=== PATIENT | female | born 1985 | race Caucasian/White ===

== ENCOUNTER 2016-10-30 10:25 | Outpatient (CLI) | payer OTHER ==
[~2016-10-30] VITALS: Ht 160 cm; Wt 121.3 kg
[2016-10-30 11:07] VITALS: BP 129/85; PULSE 83; Ht 160 cm; Wt 121.3 kg
[2016-10-30] MEDS ORDERED: PRENAT PO (11:10)
--- NOTE | 2016-10-30 12:35 | RADRPT ---
PROCEDURE: US OB. CLINICAL INDICATION: Low MED TECHNIQUE: Transabdominal views of the pelvis are available for review. COMPARISON: None. FINDINGS: There is a single intrauterine gestation in a vertex position. The heart rate is present at 133 bpm. The placenta is posterior and fundal in location. There is no evidence of placenta previa or a plac ental abruption. The MED measures 15.3 cm. RPTAT: AA IMPRESSION: Normal MED. Marcello Bowser Physician Date Time Electronically viewed and signed by Marcello Bowser Physician on 10/30/2016 12:34 /
--- NOTE | 2016-10-30 13:40 | CONS ---
Date/Time of Note Date/Time of Note DATE: 10/30/16 TIME: 13:37 Assessment/Plan Assessment/Plan Additional Assessment/Plan 30 y/o at 37w 6d with GDMA1, NST reactive and MED normal. -discharge home -f/u with OB -continue biweekly NST/MED Consultation Date/Type/Reason Admit Date/Time Reason for Consultation NST for GDMA1 Hx of Present Illness 30 y/o at 37w 6d who presents for NST/MED for GDMA1. Denies LOF, VB, UCs, dysuria. +FM. Getting PNC, no complications. h/o x1. Per HPI. Other systems negative. Past Medical History Medical History: no pertinent history Past Surgical History Past Surgical Hx: no surgical history Social History Denies habits. Smoking Status: Never smoker Exam/Review of Systems Vital Signs Vitals Vital Signs Date Time Temp Pulse Resp B/P Pulse Ox O2 Delivery O2 Flow Rate FiO2 10/30/16 11:07 98.2 83 129/85 Exam Gen: NAD HEENT: NCAT CV: RRR Pulm: CTAB Abd: gravid, NT Back: no CVAT Ext: NT FHT: reactive [place]: no UCs MED: 15.3 cm Results Results 24 hrs Laboratory Tests Test 10/30/16 11:11 Bedside Glucose 95 SATISH MORLEY October 30, 2016 13:40
== END 2016-10-30 13:37 | disposition home or self-care (01) ==
LOC: L-D 10:25 → OBT 10:25
PROVIDERS: ATTEND Obstetrics & Gynecology
DX: O24.410 Gestational diabetes mellitus in pregnancy, diet controlled (principal); Z3A.37 37 weeks gestation of pregnancy
CPT/HCPCS: 76815; 82962; Z7500; G0463

== ENCOUNTER 2016-11-06 05:50 | Inpatient (IN) | payer OTHER ==
[~2016-11-06] VITALS: Ht 160 cm; Wt 121.3 kg
[~2016-11-06 05:50] MED LIST: PRENAT PO
[2016-11-06 05:55] VITALS: Ht 160 cm; Wt 121.3 kg
[2016-11-06] MEDS ORDERED: METHYLERGONOVINE 0.2 MG INJ IM PRN ×2 (06:00→08:00)
[2016-11-06] MEDS ORDERED: MISOPROSTOL 200 MCG TAB PR PRN ×2 (06:00→08:00)
[2016-11-06] MEDS ORDERED: OXYTOCIN 30 UNITS/LR 500 ML IV SCH (06:00)
[2016-11-06] MEDS ORDERED: CEFAZOLIN 2 GM/50 ML (PMX) 50 ML IV SCH (06:00)
[2016-11-06] MEDS ORDERED: OXYTOCIN 30 UNITS/LR 500 ML IV PRN ×2 (06:00→08:00)
[2016-11-06] MEDS ORDERED: CARBOPROST 250 MCG INJ IM PRN ×2 (06:00→08:00)
[2016-11-06] MEDS: LACTATED RINGER'S 1,000 ML IV SCH ×5 (06:22→23:30)
[2016-11-06 06:33] LABS: ADD SCAN DIFF NO
[2016-11-06 06:42] LABS: ABNORMAL IP MESSAGE 1; BASOPHILS % 0.3 % (0.0-2.0); EOSINOPHILS # 0.1 10^3/ul (0.0-0.5); EOSINOPHILS % 0.6 % (0.0-7.0); HEMATOCRIT 42.4 % (37.0-47.0); LYMPHOCYTES % 23.4 % (15.0-51.0); MEAN CORPUSCULAR HEMOGLOBIN 27.6 pg (29.0-33.0); MEAN CORPUSCULAR VOLUME 83.6 fl (82.0-101.0); MEAN PLATELET VOLUME 13.3 fl (7.4-10.4); MONOCYTE # 0.9 10^3/ul (0.3-0.9); MONOCYTES % 6.9 % (0.0-11.0); NEUTROPHIL # 8.6 10^3/ul (1.6-7.5); NEUTROPHILS % 68.3 % (39.0-77.0); PLATELET COUNT 218 10^3/UL (140-415); RED BLOOD COUNT 5.07 10^6/ul (4.20-5.40); RED CELL DISTRIBUTION WIDTH 13.7 % (11.5-14.5); WHITE BLOOD COUNT 12.6 10^3/ul (4.8-10.8)
[2016-11-06 06:50] VITALS: BP 140/84; PULSE 111; RESP 18
[2016-11-06 06:59] LABS: INR 0.84; PROTIME 11.5 Sec (12.2-14.2); PT RATIO 0.9
[2016-11-06 07:00] LABS: PARTIAL THROMBOPLASTIN TIME 24.2 Sec (25.0-35.0)
[2016-11-06] MEDS ORDERED: CEFAZOLIN 1 GM INJ ONE (07:00)
[2016-11-06] MEDS ORDERED: LACTATED RINGER'S 1,000 ML IV PRN (07:15)
[2016-11-06] MEDS ORDERED: PHENYLephrine (100 MCG/ML) 5ML SYG ONE ×2 (07:52→08:44)
[2016-11-06] MEDS ORDERED: morphine SULFATE/PF (10 MG/10 ML) INJ ONE (07:52)
[2016-11-06] MEDS ORDERED: ONDANSETRON 4 MG INJ ONE (07:52)
[2016-11-06] MEDS ORDERED: OXYTOCIN 10 UNIT INJ ONE (07:52)
[2016-11-06] MEDS ORDERED: OXYCODONE/ACETAMINOPHEN (5/325) TAB PO PRN (08:00)
[2016-11-06] MEDS ORDERED: METHYLERGONOVINE 0.2 MG TAB PO PRN (08:00)
[2016-11-06] MEDS ORDERED: NA PHOSPHATE/BIPHOS 133 ML ENEMA PR PRN (08:00)
[2016-11-06] MEDS ORDERED: LANOLIN 7 GM TUBE TOP PRN (08:00)
[2016-11-06] MEDS ORDERED: ONDANSETRON 4 MG INJ IV PRN ×2 (08:00→12:30)
--- NOTE | 2016-11-06 08:04 | HPN ---
Date/Time of Note Date/Time of Note DATE: 11/06/16 TIME: 08:03 Interval H&P Admission Note Pt. seen H&P reviewed: No system changes JUAN WARD MD November 06, 2016 08:04
--- NOTE | 2016-11-06 08:38 | PREOPHP ---
DATE OF ADMISSION: 11/06/2016 HISTORY OF PRESENT ILLNESS: This is a 30-year-old female, 5, para 1, abortions 2, with 1 li ving child. She had a due date estimate of 11/14/2016. The patient had seen on labetalol during th e due to hypertension of . She is morbidly obese and she had gained only 20 poun ds during this . She has been checked with NSTs and BPPs due to her hypertension and she aquino d no complications. She became gestational diabetic. Everything else had been normal. Borderline diabetic. Only 1 value all the 3-hour was abnormal. The patient otherwise is stable and she is und ergoing a repeat section. She had a first baby in 2005, with premature delivery at 5 month s. The baby did not make it. Then she had a spontaneous vaginal delivery in 2008, then a 14-week p regnancy lost. Then she had a , at which time she delivered at 24 weeks, with albino th. At this time she is with a second partner and she is admitted for a repeat sec tion. FAMILY HISTORY: Her care mother had ovarian cancer. ALLERGIES: SHE IS NOT ALLERGIC TO ANY MEDICATION. SOCIAL HISTORY: She does not drink or smoke and no history of drug addiction. PERSONAL HISTORY: Only for 1 and second trimester loss 2 times. The patient was followed by perinatology since early and there was no need for a cerclage. She was place d on labetalol 50 mg b.i.d. due to borderline hypertension. She had an uncomplicated othe rwise. PHYSICAL EXAMINATION: VITAL SIGNS: The blood pressure is 130/80. The patient weighs 262 pounds. She is 5 feet 3 and her blood pressure is 130/80. HEAD AND NECK: Normal. CHEST: Clear. HEART: Normal sinus rhythm. LUNGS: Clear. BREASTS: Soft, nontender. No masses. ABDOMEN: Soft. Uterus at term. The patient has no contractions. PELVIC EXAMINATION: With a cephalic presentation, nonengaged closed cervix, long, posterior. Membr anes intact, non-effaced. EXTREMITIES: Normal, with normal pulses and normal reflexes. DIAGNOSES: 1. Term . 2. Borderline diabetes. 3. Hypertension of . 4. Previous section. PLAN: She is undergoing a repeat section. She has been advised of the possible risks and possible complications of the procedure, with her alternatives and options. Written information was provided. She had no more questions and agreed to go ahead with the procedure, with full understan ding and no more questions. Dictated By: JUAN HINDS/NTS Conf#: [id number] DID#: [id number]
[2016-11-06] MEDS ORDERED: METOCLOPRAMIDE 10 MG INJ ONE (08:50)
[2016-11-06] MEDS: SENNA/DOCUSATE NA (8.6MG/50MG) TAB PO SCH ×2 (09:00→21:05)
[2016-11-06] MEDS: LABETALOL 100 MG TAB GTB SCH ×2 (09:00→21:00)
[2016-11-06 09:03] LABS: ALBUMIN 3.5 g/dl (3.3-4.9)
[2016-11-06 09:04] LABS: POTASSIUM 4.2 mmol/L (3.5-5.1)
[2016-11-06 09:06] LABS: ALBUMIN/GLOBULIN RATIO 0.83; BILIRUBIN,INDIRECT 0.1 mg/dl (0-1.1); BILIRUBIN,TOTAL 0.1 mg/dl (0.2-1.3); CREATININE 0.65 mg/dl (0.44-1.00); TOTAL PROTEIN 7.7 g/dl (6.1-8.1)
[2016-11-06 09:07] LABS: CALCIUM 9.3 mg/dl (8.4-10.2); URIC ACID 5.3 mg/dl (3.1-7.9)
--- NOTE | 2016-11-06 09:36 | OPR ---
Date/Time of Note Date/Time of Note DATE: 11/06/16 TIME: 09:30 Operative Report Procedure Date: November 06, 2016 Preoperative Diagnosis term morbid obesity hypertension diabetes previous c/s Postoperative Diagnosis same baby girl 9 Operation Performed repeat low segment transverse c/s Surgeon: JUAN WARD MD Prn Physical Therapist: MICHAEL ARMSTRONG MD Anesthesia: spinal Anesthesiologist: WILBERT SHANNON MD Estimated Blood Loss: 250 - 300 ml's Tubes/Drains Bard Complications: None Pt Condition Post Procedure: stable Disposition: PACU JUAN WARD MD November 06, 2016 09:36
--- NOTE | 2016-11-06 09:40 | OPR ---
DATE OF OPERATION: 11/06/2016 OPERATION: Repeat low segment transverse section. PREOPERATIVE DIAGNOSES: 1. Term . 2. Previous section. 3. Morbid obesity. 4. hypertension. 5. Gestational hypertension. 6. Borderline diabetes. POSTOPERATIVE DIAGNOSES: 1. Term . 2. Previous section. 3. Morbid obesity. 4. hypertension. 5. Gestational hypertension. 6. Borderline diabetes. 7. Baby girl, 9. SURGEON: Juan Woodson MD CYBER DEFENSE INCIDENT RESPONDER: Michael Aj MD ANESTHESIOLOGIST: Vishal Leblanc MD ANESTHESIA: Spinal. PROCEDURE: The patient was given a spinal anesthesia, placed in the supine position and the abdomen was prepped and draped. The Barone catheter was placed in the bladder. A transverse incision was m nina through the previous old scar transversely 2 cm up the pubic bone of about 10 cm in length. The abdominal cavity was reached and the Simone retractor was placed and 2 laps were used on the sides to retract the bowel. There was adhesions of the omentum that were lysed. The bladder flap was mad e. The uterus was opened in the midline with a scalpel and the incision was increased laterally on either side for about 3 inches. The baby's head was delivered. Suction of the nostril were done be fore the delivery of the body. The baby was delivered followed by cutting the cord and the baby was handed over to the information technology coordinator team. The cord blood was obtained. The placenta was removed. Th e uterus was swabbed out and the cervix was opened with a ring forceps. The incision was closed in 2 layers using #1 Monocryl continuous suture imbedding the first line of suture and hemostasis was g ood. The tubes and ovaries were normal. The uterus contracted down and a piece of Interceed was pl aced on the incision for prevention of adhesions. The peritoneum was closed with a 2-0 Vicryl. The fascia was closed with 0 PDS looped suture. A Bard drain was used to the subcutaneous tissue due t o the thickness of the fat tissue on this area. The drain was brought out 5 cm up the incision on t he right side using a knife. The subcutaneous tissue was closed with 2-0 Vicryl suture and 3-0 Hart cryl were used subcuticular to the skin, Steri-Strips and also Dermabond. The patient tolerated the procedure well and left the OR awake and stable. Sponge counts, instrument counts were correct. I ntravenous antibiotics were given for prophylaxis. Blood loss was approximately 300 mL. The urine was clear at the end of the procedure. Dictated By: JUAN HINDS/NTS Conf#: [id number] DID#: [id number] CC: MICHAEL AJ MD;*EndCC*
[2016-11-06] MEDS: OXYTOCIN 30 UNITS/LR 500 ML IV SCH ×2 (09:58→12:14)
[2016-11-06 12:30] VITALS: BP 121/76; PULSE 88; RESP 18
[2016-11-06] MEDS ORDERED: NALOXONE (0.4 MG/ML) INJ IV PRN (12:30)
[2016-11-06] MEDS ORDERED: morphine 2 MG INJ IV PRN (12:30)
[2016-11-06] MEDS ORDERED: DIPHENHYDRAMINE 50 MG INJ IV PRN (12:30)
[2016-11-06] MEDS: KETOROLAC 30 MG INJ IV PRN ×2 (12:47→22:14)
[2016-11-06] MEDS ORDERED: IBUPROFEN 800 MG TAB PO SCH (14:00)
[2016-11-06] MEDS: CEFAZOLIN 1 GM/50 ML (PMX) 50 ML IVPB SCH ×2 (14:12→21:45)
[2016-11-06 16:00] VITALS: BP 129/81; PULSE 87; RESP 20
[2016-11-06 19:45] VITALS: BP 126/80; PULSE 90; RESP 20
[2016-11-06 23:30] VITALS: BP 120/75; PULSE 80; RESP 19
[2016-11-07 04:00] VITALS: BP 115/77; PULSE 87; RESP 18
[2016-11-07] MEDS: LACTATED RINGER'S 1,000 ML IV SCH ×3 (05:35→23:52)
[2016-11-07] MEDS: CEFAZOLIN 1 GM/50 ML (PMX) 50 ML IVPB SCH (05:35)
[2016-11-07] MEDS: KETOROLAC 30 MG INJ IV PRN (05:40)
[2016-11-07 07:30] VITALS: BP 107/70; PULSE 77; RESP 19
[2016-11-07 08:10] LABS: ADD SCAN DIFF NO
[2016-11-07 08:17] LABS: ABNORMAL IP MESSAGE 1; BASOPHILS % 0.3 % (0.0-2.0); EOSINOPHILS # 0.1 10^3/ul (0.0-0.5); EOSINOPHILS % 0.8 % (0.0-7.0); HEMOGLOBIN 11.6 g/dl (12.0-16.0); LYMPHOCYTES % 18.8 % (15.0-51.0); MEAN CORPUSCULAR HGB CONC 33.1 g/dl (32.0-37.0); MEAN CORPUSCULAR VOLUME 84.3 fl (82.0-101.0); MEAN PLATELET VOLUME 13.3 fl (7.4-10.4); MONOCYTE # 0.9 10^3/ul (0.3-0.9); MONOCYTES % 8.5 % (0.0-11.0); NEUTROPHIL # 7.5 10^3/ul (1.6-7.5); NEUTROPHILS % 71.1 % (39.0-77.0); PLATELET COUNT 188 10^3/UL (140-415); RED BLOOD COUNT 4.15 10^6/ul (4.20-5.40); RED CELL DISTRIBUTION WIDTH 13.7 % (11.5-14.5); WHITE BLOOD COUNT 10.5 10^3/ul (4.8-10.8)
[2016-11-07 08:35] LABS: ALBUMIN 2.6 g/dl (3.3-4.9)
[2016-11-07 08:36] LABS: POTASSIUM 3.7 mmol/L (3.5-5.1)
[2016-11-07 08:38] LABS: ALBUMIN/GLOBULIN RATIO 0.81; BILIRUBIN,INDIRECT 0.1 mg/dl (0-1.1); BILIRUBIN,TOTAL 0.1 mg/dl (0.2-1.3); CREATININE 0.65 mg/dl (0.44-1.00); TOTAL PROTEIN 5.8 g/dl (6.1-8.1)
[2016-11-07 08:39] LABS: CALCIUM 8.5 mg/dl (8.4-10.2); URIC ACID 5.2 mg/dl (3.1-7.9)
[2016-11-07] MEDS: LABETALOL 100 MG TAB GTB SCH ×2 (09:00→21:02)
[2016-11-07] MEDS: OXYCODONE/ACETAMINOPHEN (5/325) TAB PO PRN ×3 (10:42→23:46)
[2016-11-07] MEDS: SENNA/DOCUSATE NA (8.6MG/50MG) TAB PO SCH ×2 (10:42→21:01)
[2016-11-07 11:16] LABS: INR 0.93; PROTIME 12.5 Sec (12.2-14.2)
[2016-11-07 12:00] VITALS: BP 121/86; PULSE 86; RESP 19
--- NOTE | 2016-11-07 12:27 | PN ---
Date/Time of Note Date/Time of Note DATE: 11/07/16 TIME: 12:25 OB Subjective Subjective Subjective POD # 1 S/P repeat Patient has no complaints OB Objective Objective Objective Patient is voiding, positive flatus Patient is ambulating and tolerating regular diet HEENT: WNL Heart: Rhythm Normal Lungs: Clear, Equal Abdomen: WNL (Incision C/D/I) Extremities: Normal Reflexes: Normal OB Assessment/Plan Other Assessment: POD # 1 S/P repeat Patient stable and afebrile Other plan: Encouraged to ambulate Continue with present management EMY PIKE MD November 07, 2016 12:27
[2016-11-07] MEDS: IBUPROFEN 800 MG TAB PO SCH ×2 (13:41→22:00)
[2016-11-07 16:00] VITALS: BP 125/77; PULSE 91; RESP 19
[2016-11-07 19:30] VITALS: BP 136/90; PULSE 78; RESP 18
[2016-11-08 04:00] VITALS: BP 123/74; PULSE 88; RESP 18
[2016-11-08] MEDS: IBUPROFEN 800 MG TAB PO SCH ×3 (05:32→22:07)
[2016-11-08] MEDS: LACTATED RINGER'S 1,000 ML IV SCH ×2 (07:52→15:52)
[2016-11-08 08:00] VITALS: BP 122/79; PULSE 93; RESP 19
[2016-11-08] MEDS: LABETALOL 100 MG TAB GTB SCH ×2 (10:29→20:47)
[2016-11-08] MEDS: OXYCODONE/ACETAMINOPHEN (5/325) TAB PO PRN (10:30)
[2016-11-08] MEDS: SENNA/DOCUSATE NA (8.6MG/50MG) TAB PO SCH ×2 (10:30→20:47)
[2016-11-08 12:00] VITALS: BP 140/94; PULSE 85; RESP 19
--- NOTE | 2016-11-08 12:36 | QN ---
Documentation Comment POD2 pt doing well vss exam wnl CDI a/p pod 2 continue care MICHAEL ARMSTRONG MD November 08, 2016 12:36
[2016-11-08 16:08] VITALS: BP 122/55; PULSE 64; RESP 19
[2016-11-08 19:40] VITALS: BP 135/89; PULSE 86; RESP 18
[2016-11-09] MEDS: OXYCODONE/ACETAMINOPHEN (5/325) TAB PO PRN ×2 (01:32→09:50)
[2016-11-09 03:45] VITALS: BP 112/79; PULSE 80; RESP 18
[2016-11-09] MEDS: IBUPROFEN 800 MG TAB PO SCH ×3 (05:52→22:01)
[2016-11-09] MEDS: LACTATED RINGER'S 1,000 ML IV SCH ×3 (07:52→23:52)
[2016-11-09 08:20] VITALS: BP 116/68; PULSE 98; RESP 19
[2016-11-09] MEDS ORDERED: DIPHTH/TET/ACEL PERTUSS (ADULT) 0.5 ML VIAL IM* ONE (09:00)
[2016-11-09] MEDS ORDERED: MEASLES,MUMPS,RUBELLA VACCINE INJ SC* ONE (09:00)
[2016-11-09] MEDS: SENNA/DOCUSATE NA (8.6MG/50MG) TAB PO SCH ×2 (09:50→20:45)
[2016-11-09] MEDS: LABETALOL 100 MG TAB GTB SCH ×2 (09:50→20:46)
[2016-11-09 15:08] VITALS: BP 123/85; PULSE 96; RESP 18
[2016-11-09 19:45] VITALS: BP 136/93; PULSE 93; RESP 18
--- NOTE | 2016-11-09 23:11 | PN ---
Date/Time of Note Date/Time of Note DATE: 11/09/16 TIME: 23:05 OB Subjective Subjective Subjective having headaches when standing up, relieved by lying down otherwise she is doing ok OB Objective Objective Objective incision healing well. JPratt DRAINING 300 CC TODAY HEENT: WNL Heart: Rhythm Normal Lungs: Clear, Equal Abdomen: WNL Extremities: Normal Reflexes: Normal JUAN WARD MD November 09, 2016 23:11
[2016-11-10] MEDS ORDERED: CAFFEINE 200 MG TABLET PO SCH
[2016-11-10 03:50] VITALS: BP 103/69; PULSE 90; RESP 20
[2016-11-10] MEDS: IBUPROFEN 800 MG TAB PO SCH ×3 (05:54→22:03)
[2016-11-10] MEDS: LACTATED RINGER'S 1,000 ML IV SCH (07:52)
[2016-11-10 08:00] VITALS: BP 133/86; PULSE 79; RESP 18
[2016-11-10] MEDS: SENNA/DOCUSATE NA (8.6MG/50MG) TAB PO SCH ×2 (09:29→21:03)
[2016-11-10] MEDS: LABETALOL 100 MG TAB GTB SCH ×2 (09:29→21:06)
[2016-11-10 12:00] VITALS: BP 140/82; PULSE 86; RESP 18
--- NOTE | 2016-11-10 13:56 | PN ---
Date/Time of Note Date/Time of Note DATE: 11/10/16 TIME: 13:52 Assessment/Plan Lines/Catheters IV Catheter Type (from Nrsg): Peripheral IV Subjective 24 Hr Interval Summary EPIDURAL BLOOD PATCH WAS GIVEN DUE TO HEADACHES THAT WERE ONLY POSTURAL HEADACHES DUE TO SPINAL ANESTHESIA Constitutional: BM, ambulates, flatus, improved, urine output Feeding: advancing diet Pain Control: well controlled Detailed Summary Eyes: no complaints ENT: no complaints Respiratory: no complaints Cardiovascular: no complaints Gastrointestinal: no complaints Genitourinary: no complaints Musculoskeletal: no complaints Skin: no complaints Neurologic: no complaints Endocrine: no complaints Lymphatic: no complaints Psychological: nl mood/affect, no complaints Immunologic: no complaints Exam/Review of Systems Vital Signs Vitals Vital Signs Date Time Temp Pulse Resp B/P Pulse Ox O2 Delivery O2 Flow Rate FiO2 11/10/16 03:50 98.1 90 20 103/69 Room Air Intake and Output 11/09/16 11/09/16 11/10/16 15:00 23:00 07:00 Output Total 30 ml 20 ml Balance -30 ml -20 ml Exam Free Text/Dictation HEADACHES WERE STRONG TODAY ANESHESIA WAS CALLED FOR A BLOOD PATCH Constitutional: alert, oriented, well developed Psych: nl mood/affect, no complaints Head: atraumatic, normocephalic Eyes: EOMI, nl conjunctiva, nl lids, nl sclera ENMT: mucosa pink and moist, nl external ears & nose, nl lips & teeth, nl nasal mucosa & septum Neck: non-tender, supple Respiratory: clear to auscultation, normal air movement Cardiovascular: nl pulses, regular rate and rhythm Gastrointestinal: nl liver, spleen, non-tender, soft Musculoskeletal: nl extremities to inspection, nl gait and stance Extremities: normal pulses Neurological: STUDENT DEVELOPMENT DEAN II-XII intact, nl mental status, nl speech, nl strength Skin: nl turgor, rash or lesions Lymph: nl lymph nodes Results Result Diagram: 11/07/1640 11/07/1640 JUAN WARD MD November 10, 2016 13:55
[2016-11-10 16:00] VITALS: BP 118/69; PULSE 86; RESP 19
[2016-11-10 19:45] VITALS: BP 127/84; PULSE 94; RESP 16
[2016-11-10 23:50] VITALS: BP 134/86; PULSE 86; RESP 18
[2016-11-11 04:00] VITALS: BP 109/69; PULSE 94; RESP 16
[2016-11-11] MEDS: IBUPROFEN 800 MG TAB PO SCH (06:13)
[2016-11-11 08:30] VITALS: BP 115/73; PULSE 87; RESP 22
[2016-11-11] MEDS: SENNA/DOCUSATE NA (8.6MG/50MG) TAB PO SCH (08:33)
[2016-11-11] MEDS: LABETALOL 100 MG TAB GTB SCH (08:36)
--- NOTE | 2016-11-11 11:52 | PD.PPDC ---
VALIDATION SPECIALIST Discharge Instruction Condition Patient Condition: Good Diet Diet: Resume Regular Diet Activity/Restrictions Activity: Normal Activity May Shower Restrictions: No Exercising No Lifting No Driving No Sexual Activity Nothing in the Vagina No [place] No Tampons, douche Wound/Drain Care Instructions Wound/Drain Care Instructions: Remove Steri Strips in 1 week Wash with soap and water Keep clean and dry Follow-up Follow-up with Physician: 1, Week/Weeks Return to clinic for HEARING INSTRUMENT SPECIALIST Instructions: Fever greater than 101 Chills Worsening abdominal pain Excessive Vaginal Bleeding More than 2 pads per hour Unable to tolerate diet OB Instructions: Breast Tenderness Depression Blurried Vision Headache Surgical Instructions: Incisional Drainage Incisional Redness JUAN WARD MD November 11, 2016 11:52
--- NOTE | 2016-11-11 14:24 | DS ---
DATE OF ADMISSION: 11/06/2016 DATE OF DISCHARGE: 11/11/2016 HISTORY: This is a 30-year-old female, 5, para 1, abortions 2 with 1 living child. This pa tient had been admitted for a repeat , and she had no complications. She was with borderli ne diabetes that was controlled with diet alone, hypertension of , and at term . A repeat section was done. She had no complications. After the second day of , s he had spinal headache that was treated with a blood patch, and she became better. The patient's bl ood pressure also has become normal without need for medication, and her diabetes also got controlle d. The patient had a drain on the incision that was removed on the day of discharge which is the , and she has no problems on the incision. She was ambulatory. She had resolved her headache, an d she was passing gases with bowel movement. Her laboratory testing revealed that the hemoglobin wa s 11.6, hematocrit was 35 with a normal white count at the time of discharge, and she was sent home with Tylenol No. 3 and ibuprofen and Keflex to prevent the incision infection since slight redness o n the incision was observed. The patient was given 500 mg of Keflex every 6 hours for a week and sh e is to see me in the office at any time or in a week. She is given further instructions of what to do and not to do at home and regular diet and further instructions of how to take care of herself a nd the baby. She is stable, in good condition and good spirits to go home, and she was given the in structions to see me if she had any problems. Dictated By: JUAN HINDS/DAGOBERTO Conf#: [id number] DID#: [id number]
== END 2016-11-11 14:15 | disposition home or self-care (01) | DRG 765 ==
LOC: L-D 05:50 → PP1 12:45
PROVIDERS: ADMIT Obstetrics & Gynecology; ATTEND Obstetrics & Gynecology
PROC: 10D00Z1 Extraction of Products of Conception, Low, Open Approach (ICD-10-PCS; principal; 2016-11-06 07:30)
PROC: 3E0R3GC Introduction of Other Therapeutic Substance into Spinal Canal, Percutaneous Approach (ICD-10-PCS; 2016-11-10)
DX: O34.211 Maternal care for low transverse scar from previous cesarean delivery (principal); Z68.42 Body mass index [BMI] 45.0-49.9, adult; O16.4 Unspecified maternal hypertension, complicating childbirth; Z37.0 Single live birth; O24.410 Gestational diabetes mellitus in pregnancy, diet controlled; O99.214 Obesity complicating childbirth; E66.01 Morbid (severe) obesity due to excess calories; Z3A.00 Weeks of gestation of pregnancy not specified; O89.4 Spinal and epidural anesthesia-induced headache during the puerperium
CPT/HCPCS: 80053; 82962; 84560; 85025; 85384; 85610; 85730; 86592; 86850; 86900; 86901; 87340; 90715; 99464; J0690; J1885; J2274; J2370; J2405; J2590; J2765; J7120

== ENCOUNTER 2018-05-31 17:59 | Outpatient (CLI) | END 2018-05-31 18:53 | disposition home or self-care (01) ==

== ENCOUNTER 2018-05-31 18:57 | Emergency (ER) | END 2018-05-31 20:40 | disposition home or self-care (01) ==

== ENCOUNTER 2018-06-11 00:56 | Outpatient (CLI) | END 2018-06-11 08:00 | disposition home or self-care (01) ==

== ENCOUNTER 2018-06-29 15:17 | Inpatient (IN) | payer OTHER ==
[~2018-06-29] VITALS: Ht 160 cm; Wt 131.3 kg
[2018-06-29 15:54] VITALS: Ht 160 cm; Wt 131.3 kg
[2018-06-29 15:55] VITALS: BP 125/78; PULSE 100; RESP 18
[2018-06-29] MEDS ORDERED: CEFAZOLIN 3 GM in DEXTROSE 5% 100 ML IV SCH (21:00)
[2018-06-29] MEDS ORDERED: MISOPROSTOL 200 MCG TAB PR PRN ×2 (21:00→23:00)
[2018-06-29] MEDS ORDERED: METHYLERGONOVINE 0.2 MG INJ IM PRN ×2 (21:00→23:00)
[2018-06-29] MEDS ORDERED: CARBOPROST 250 MCG INJ IM PRN ×2 (21:00→23:00)
[2018-06-29] MEDS ORDERED: OXYTOCIN 30 UNITS/LR 500 ML IV PRN (21:00)
[2018-06-29] MEDS: LACTATED RINGER'S 1,000 ML IV SCH ×2 (21:05→22:36)
--- NOTE | 2018-06-29 22:33 | PREOPHP ---
DATE OF ADMISSION: 06/29/2018 HISTORY OF PRESENT ILLNESS: The patient admitted today due to impending mild to severe preeclampsia and gestational diabetes, and previous section. This is a 32-year-old female, 6 wit h 3 previous deliveries, one was premature at 5 months in 2005, the other one was a vaginal delivery in 2008 and in between 2009 and 2010 she had a miscarriage and another second trimester , and a previous section in 2016. At present time, this baby is due on 07/16/2018 by cora murray. Her last period was 10/13/2017 with not an accurate date of last period and an ultrasound early trimester giving her an EDC of 07/16/2018. This patient had been accepted in the practice at 11 week s for care. She has morbid obesity and her weight is 265 at the time of . At this time, she gained 17 pounds. The patient had been diagnosed with gestational diabetes in 01/20. She had been following close visits to the perinatologist and she has been controlled on metformin. This patient lately had been having an elevated blood pressure in which last visit in May she was ev aluated for preeclampsia and the preeclampsia was mild. She has been controlling her blood sugar. N STs and BPP has been done weekly. Today, she had come in due to the NST and BPP controlled. She was diagnosed with a large fetus by the perinatologist possibly due to partially controlled diabetes. S he has been running blood pressures that have been up and down with blood pressure in the office, cindy stolic in the 100s and coming back to normal with headaches, dizziness, epigastric pain that are spor adic and they come and go and they are very strong. BPP and NST normal. At this time, the patient h as been kept for a repeat due to blood pressures that are fluctuating up and down, and with impending severe preeclampsia. PAST MEDICAL HISTORY: The patient had a previous section at 40 weeks during the last pregna ncy. FAMILY HISTORY: Ovarian cancer on her mother. ALLERGIES: SHE IS NOT ALLERGIC TO ANY MEDICATION. PAST SURGICLAL HISTORY: She has no other surgeries. SOCIAL HISTORY: She does not drink or smoke. No history of drugs. PHYSICAL EXAMINATION: VITAL SIGNS: The patient weighs 282 pounds and her blood pressure is 130/90. HEAD AND NECK: Normal. CHEST: Clear. HEART: Normal sinus rhythm. LUNGS: Clear. BREASTS: Soft, nontender, no masses. ABDOMEN: Soft. Uterus at term, 37 weeks, with no uterine contractions. PELVIC: With cervix that is closed, long and posterior. EXTREMITIES: Normal with normal pulses and no edema. DIAGNOSES: 1. 37 weeks . 2. Gestational diabetes A2 and preeclampsia. PLAN: She is undergoing a repeat section. She has been advised of the possible risks and p ossible complications of the procedure with her alternatives and options. Written information was pr ovided. She had no more questions and agreed to go ahead with the procedure with full understanding and no more questions. Dictated By: JUAN HINDS/DAGOBERTO Conf#: [id number] DID#: [id number]
[2018-06-29] MEDS ORDERED: OXYTOCIN 30 UNITS/LR 500 ML IV SCH (22:41)
[2018-06-29] MEDS ORDERED: LACTATED RINGER'S 1,000 ML IV SCH (22:41)
--- NOTE | 2018-06-29 22:55 | SIPON ---
Date/Time of Note Date/Time of Note DATE: 06/29/18 TIME: 22:53 Operative Report Preoperative Diagnosis 37 weeks in labor Previous section Maternal obesity Preeclampsia GDM A2 Postoperative Diagnosis Same Operation/Procedure Performed Repeat low segment transverse section Lysis of adhesions Surgeon see signature line culture media laboratory assistant DR PRYOR Anesthesia: spinal Estimated blood loss: other Transfusion Required none Specimen Placenta Grafts/Implants none Complications none JUAN WARD MD Jun 29, 2018 22:55
[2018-06-29] MEDS ORDERED: LANOLIN HPA 1 PKT TOP PRN (23:00)
[2018-06-29] MEDS ORDERED: METHYLERGONOVINE 0.2 MG TAB PO PRN (23:00)
[2018-06-29] MEDS ORDERED: HYDROCODONE/APAP (5/325) TAB PO PRN (23:00)
[2018-06-29] MEDS ORDERED: NA PHOSPHATE/BIPHOS 133 ML ENEMA PR PRN (23:00)
[2018-06-29] MEDS: CEFAZOLIN 2 GM/50 ML (PMX) 50 ML IVPB SCH (23:00)
--- NOTE | 2018-06-30 00:22 | PREAC ---
Date/Time of Note Date/Time of Note DATE: 06/30/18 TIME: 00:19 Anesthesia Eval and Record Evaluation Time Pre-Procedure Interview DATE: 06/30/18 TIME: 00:19 Age 32 Sex female NPO: 8 hrs Preoperative diagnosis IUP Planned procedure Repeat Csection Past Medical History Past Medical History: Includes Cardio: HTN, Dyslipidemia Endo: Diabetes GI: Morbid obesity Surgery & Anesthesia Issues No known issue Meds Anticoagulation: No Beta Glenn within 24 hr: No Reason Beta Glenn not given: Pt. not on B-Glenn Reported Medications Multivit/Min/Fol Ac/Iron/Pren* ( S*) 1 Tab Tab, 1 TAB PO DAILY, TAB 10/30/16 Current Medications Lactated Ringer's 1,000 ml @ 125 mls/hr Q8H IV ; Start 06/29/18 at 22:41; Stop 06/30/18 at 02:40 Cefazolin Sodium/ Dextrose 50 ml @ 100 mls/hr Q8H IVPB ; Start 06/29/18 at 23:00; Stop 06/30/18 at 15:29 Oxytocin/Lactated Ringer's 500 ml @ 50 mls/hr Q10H IV ; Start 06/29/18 at 22:41; Stop 06/30/18 at 08:40 Methylergonovine Maleate (Methergine) 0.2 mg Q6H PRN PO VAGINAL BLEEDING; Start 06/29/18 at 23:00 Acetaminophen/ Hydrocodone Bitart ([place] (5/325)) 1 tab Q4H PRN PO PAIN LEVEL 4-6; Start 06/29/18 at 23:00 Acetaminophen/ Hydrocodone Bitart ([place] (5/325)) 2 tab Q4H PRN PO PAIN LEVEL 7-10; Start 06/29/18 at 23:00 Ibuprofen (Motrin) 800 mg Q8 PO ; Start 07/01/18 at 14:00 Simethicone (Mylicon) 160 mg Q8H PRN PO DISTENSION/GAS/BLOATING; Start 06/29/18 at 23:00 Senna/Docusate Sodium (Senokot-S) 1 tab BID PO ; Start 06/30/18 at 09:00 Sodium Biphosphate/ Sodium Phosphate (Fleet Enema) 133 ml DAILY PRN MT CONSTIPATION; Start 06/29/18 at 23:00 Lanolin (Lanolin Hpa) 1 applic BEDSIDE MEDICATION PRN TOP BEDSIDE FOR GRAEME TO NIPPLES; Start 06/29/18 at 23:00 Diphtheria/ Tetanus/Acell Pertussis (Adacel) 0.5 ml ONCE ONCE IM* ; Start at 09:00; Stop 07/02/18 at 09:01 Measles/Mumps/ Rubella Vaccine Live (Mmr Ii Vaccine) 0.5 ml ONCE ONCE SC* ; Start 07/02/18 at 09:00; Stop 07/02/18 at 09:01 Enoxaparin Sodium (Lovenox) 40 mg DAILY SC ; Start 06/30/18 at 09:00 Oxytocin/Lactated Ringer's 500 ml @ 0 mls/hr ONCE PRN IV VAGINAL BLEEDING; Start 06/29/18 at 23:00 Methylergonovine Maleate (Methergine) 0.2 mg ONCE PRN IM VAGINAL BLEEDING; Start 06/29/18 at 23:00 Carboprost Tromethamine (Hemabate) 250 mcg ONCE PRN IM VAGINAL BLEEDING; Start 06/29/18 at 23:00 Misoprostol (Cytotec) 1,000 mcg ONCE PRN MT VAGINAL BLEEDING; Start 06/29/18 at 23:00 Ketorolac Tromethamine (Toradol) 30 mg Q6H IV ; Start 06/29/18 at 23:00; Stop 07/01/18 at 05:01 Meds reviewed: Yes Allergies Coded Allergies: No Known Allergy (Unverified , 06/29/18) Allergies Reviewed: Yes Labs/Studies Labs Reviewed: Reviewed by anesthesiologist Result Diagram: 06/29/18 1611 06/29/18 1611 Laboratory Tests 06/29/18 16:11 Blood Bank Test 06/29/18 20:00 Antibody Screen NEGATIVE Blood Type A POSITIVE Rh Immune Globulin Candidate NO test: Positive Studies: ECG Pre-procedure Exam Last vitals Vital Signs Date Temp Pulse Resp B/P (MAP) Pulse Ox O2 O2 Flow FiO2 Time Delivery Rate 06/29/18 98.2 100 18 125/78 Room Air 15:55 (94) Airway: Adequate mouth opening, Adequate thyromental dist Mallampati: Mallampati III Teeth: Normal Lung: Normal Heart: Normal ASA Physical Status ASA physical status: 3 Emergency: None Planned Anesthetic Neuraxial: Spinal, Epidural Planned Pain Management Epidural, Sub-arachniod narcotics, Parenteral pain med Pre-operative Attestations Prior to commencing anesthesia and surgery, the patient was re-evaluated, there was verification of: *The patient's identity *The results of appropriate recent lab work and preoperative vital signs *The above evaluation not changing prior to induction *Anesthetic plan, risk benefits, alternative and complications discussed with patient/family; questions answered; patient/family understands, accepts and wishes to proceed. WILBERT SHANNON MD Jun 30, 2018 00:22
[2018-06-30] MEDS ORDERED: ONDANSETRON 4 MG INJ ONE (00:42)
[2018-06-30] MEDS ORDERED: morphine SULFATE/PF (10 MG/10 ML) INJ ONE (00:42)
[2018-06-30] MEDS ORDERED: OXYTOCIN 10 UNIT INJ ONE (00:42)
[2018-06-30] MEDS ORDERED: PHENYLephrine (100 MCG/ML) 5ML SYG ONE (00:43)
[2018-06-30] MEDS ORDERED: METOCLOPRAMIDE 10 MG INJ ONE (01:35)
--- NOTE | 2018-06-30 02:40 | PAC ---
Date/Time of Note Date/Time of Note DATE: 06/30/18 TIME: 02:39 Post-Anesthesia Notes Post-Anesthesia Note Last documented vital signs Vital Signs Date Temp Pulse Resp B/P (MAP) Pulse Ox O2 O2 Flow FiO2 Time Delivery Rate 06/29/18 98.2 100 18 125/78 Room Air 15:55 (94) Activity: WNL Respiratory function: WNL Cardiovascular function: WNL Mental status: Baseline Pain reasonably controlled: Yes Hydration appropriate: Yes Nausea/Vomiting absent: Yes Comments BP:110/56, pulse:88,spo2:100%. T:98,8 WILBERT SHANNON MD Jun 30, 2018 02:40
[2018-06-30] MEDS ORDERED: DIPHENHYDRAMINE 50 MG INJ IV PRN (03:00)
[2018-06-30] MEDS ORDERED: ONDANSETRON 4 MG INJ IV PRN (03:00)
[2018-06-30] MEDS ORDERED: morphine 4 MG/ML VIAL IV PRN (03:00)
[2018-06-30] MEDS ORDERED: NALOXONE (0.4 MG/ML) INJ IV PRN (03:00)
[2018-06-30] MEDS ORDERED: KETOROLAC 30 MG INJ IV PRN (03:00)
[2018-06-30] MEDS ORDERED: OXYTOCIN 30 UNITS/LR 500 ML IV ONE (03:21)
[2018-06-30] MEDS: OXYTOCIN 30 UNITS/LR 500 ML IV PRN ×2 (03:30→16:33)
[2018-06-30] MEDS: KETOROLAC 30 MG INJ IV SCH ×5 (04:07→23:44)
[2018-06-30 07:00] VITALS: BP 140/70; PULSE 107; RESP 18
[2018-06-30 07:30] VITALS: BP 133/74; PULSE 109; RESP 18
--- NOTE | 2018-06-30 07:56 | OPR ---
DATE OF OPERATION: 06/30/2018 PREOPERATIVE DIAGNOSES: 37 weeks , in labor, previous section, morbid obesity, pre gnancy-induced hypertension. POSTOPERATIVE DIAGNOSES: 37 weeks , in labor, previous section, morbid obesity, pr egnancy-induced hypertension and pelvic adhesions. PROCEDURE PERFORMED: Repeat low segment transverse section. TOBACCO GRADER: Dr. Gupta. ANESTHESIA: Dr. Leblanc. Blood loss was about 700. The urine was clear. DESCRIPTION OF PROCEDURE: The patient was given spinal anesthesia, placed in the supine position. T he abdomen was prepped and draped, and the Barone catheter had been placed in the bladder. A transver se incision was made suprapubically 2 cm up the pubic bone where the old scar was and the abdomen was opened in layers without difficulties. Abdominal cavity was reached. There was some omental adhesi on and also uterine adhesions to the anterior abdominal wall that were lysed. The bladder flap was m nina. The uterus was opened in the midline with a scalpel and the incision was increased laterally on either side for about 3 inches. The baby's head was delivered with the help of a vacuum. The cord was clamped and cut. The baby was handed over to the non destructive testing technician team. Cord blood was obtained. The placenta was removed. The uterus was cleaned out and closed with 0 PDS looped suture. Hemostasi s was good. The tubes and ovaries were normal. The abdominal cavity was cleaned out and closed with a 2-0 Vicryl for the peritoneum, 0 PDS looped suture for the fascia. The drain was placed on the royal bcutaneous tissue on top of the fascia that drained through the right side of the incision, about 5 c m up the incision. Bard drain was brought out and placed on the fascia and was attached to the skin through two stitches with 2-0 silk and the tube was attached to a bulb syringe for drainage of the se rum that will be produced due to her morbid obesity. The 2-0 Vicryl suture was placed after that to the subcutaneous tissue, and 3-0 Monocryl subcuticular to the skin. Steri-Strips applied after Scribner shetty. The patient tolerated the procedure well and left the operation room awake and stable. Sponge counts, instrument counts, needle counts were correct and intravenous antibiotics were given for pro phylaxis. Dictated By: JUAN HINDS/DAGOBERTO Conf#: [id number] [facility]#: [id number] CC: JUAN WARD MD;*[facility]*
[2018-06-30] MEDS: SENNA/DOCUSATE NA (8.6MG/50MG) TAB PO SCH ×2 (08:34→22:30)
[2018-06-30] MEDS: CEFAZOLIN 2 GM/50 ML (PMX) 50 ML IVPB SCH ×2 (08:35→16:32)
[2018-06-30 09:00] VITALS: BP 118/76; PULSE 108; RESP 18
[2018-06-30] MEDS: ENOXAPARIN 40 MG/0.4 ML SYG SC SCH (09:37)
[2018-06-30 12:00] VITALS: BP 114/87; PULSE 94; RESP 18
[2018-06-30 16:22] VITALS: BP 119/71; PULSE 100; RESP 18
[2018-06-30 20:20] VITALS: BP 116/80; RESP 18
[2018-07-01] VITALS: BP 123/82; PULSE 96; RESP 18
[2018-07-01] MEDS: HYDROCODONE/APAP (5/325) TAB PO PRN ×3 (02:58→17:59)
[2018-07-01 04:00] VITALS: BP 114/65; PULSE 90; RESP 18
[2018-07-01] MEDS: KETOROLAC 30 MG INJ IV SCH (05:44)
[2018-07-01 08:30] VITALS: BP 123/80; PULSE 89; RESP 19
[2018-07-01] MEDS: SENNA/DOCUSATE NA (8.6MG/50MG) TAB PO SCH ×2 (09:23→23:05)
[2018-07-01] MEDS: ENOXAPARIN 40 MG/0.4 ML SYG SC SCH (09:24)
[2018-07-01] MEDS ORDERED: INFLUENZA VIRUS VACCINE 0.5 ML (DISPENSING) IM* ONE (10:00)
[2018-07-01] MEDS: IBUPROFEN 800 MG TAB PO SCH ×2 (14:10→23:05)
[2018-07-01 16:14] VITALS: BP 133/87; PULSE 93; RESP 20
[2018-07-01 20:20] VITALS: BP 137/89; PULSE 101; RESP 23
--- NOTE | 2018-07-01 20:27 | PN ---
Date/Time of Note Date/Time of Note DATE: 07/01/18 TIME: 20:24 Assessment/Plan Lines/Catheters IV Catheter Type (from Nrsg): Peripheral IV Subjective 24 Hr Interval Summary Day 1 post Afebrile and feeling good Abdominal incision healing good Ambulating with pain control tolerating diet Constitutional: no complaints Feeding: advancing diet Pain Control: mild Detailed Summary Eyes: no complaints ENT: no complaints Respiratory: no complaints Cardiovascular: no complaints Gastrointestinal: no complaints Genitourinary: no complaints Musculoskeletal: no complaints Skin: no complaints Neurologic: no complaints Endocrine: no complaints Lymphatic: no complaints Psychological: no complaints, nl mood/affect Immunologic: no complaints Exam/Review of Systems Vital Signs Vitals Vital Signs Date Temp Pulse Resp B/P (MAP) Pulse Ox O2 O2 Flow FiO2 Time Delivery Rate 07/01/18 98.0 93 20 133/87 Room Air 16:14 (102) 06/30/18 96 20:20 Intake and Output 06/30/18 06/30/18 07/01/18 1515:00 23:00 07:00 IntakeIntake Total 540 ml 220 ml OutputOutput Total 500 ml 400 ml 505 ml BalanceBalance 40 ml -180 ml -505 ml Exam Constitutional: alert, oriented, well developed Psych: no complaints, nl mood/affect Head: normocephalic, atraumatic Eyes: nl conjunctiva, EOMI, nl lids, nl sclera ENMT: nl external ears & nose, nl lips & teeth, nl nasal mucosa & septum, mucosa pink and moist Neck: supple, non-tender Respiratory: clear to auscultation, normal air movement Cardiovascular: regular rate and rhythm, nl pulses Gastrointestinal: soft, nl liver, spleen, non-tender Musculoskeletal: nl extremities to inspection, nl gait and stance Extremities: normal pulses 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
[2018-07-01] MEDS ORDERED: BISACODYL (EC) 5 MG TAB PO ONE (22:00)
[2018-07-02 04:15] VITALS: BP 118/84; PULSE 95; RESP 22
[2018-07-02] MEDS: HYDROCODONE/APAP (5/325) TAB PO PRN (04:36)
[2018-07-02] MEDS: IBUPROFEN 800 MG TAB PO SCH ×3 (06:36→22:14)
[2018-07-02] MEDS: SENNA/DOCUSATE NA (8.6MG/50MG) TAB PO SCH ×2 (08:00→21:08)
[2018-07-02 08:14] VITALS: BP 124/81; PULSE 90; RESP 18
[2018-07-02] MEDS ORDERED: MEASLES,MUMPS,RUBELLA VACCINE INJ SC* ONE (09:00)
[2018-07-02] MEDS ORDERED: DIPHTH/TET/ACEL PERTUSS (ADULT) 0.5 ML VIAL IM* ONE (09:00)
[2018-07-02] MEDS: ENOXAPARIN 40 MG/0.4 ML SYG SC SCH (09:19)
--- NOTE | 2018-07-02 14:10 | PN ---
Date/Time of Note Date/Time of Note DATE: 07/02/18 TIME: 14:09 Assessment/Plan Lines/Catheters IV Catheter Type (from Nrsg): Peripheral IV Subjective 24 Hr Interval Summary Day 2 post J-tube draining well, breast-feeding Afebrile and ambulatory Incision dry uterus contracted lochia normal Possible home in a.m. Constitutional: no complaints Feeding: advancing diet Pain Control: mild Detailed Summary Eyes: no complaints ENT: no complaints Respiratory: no complaints Cardiovascular: no complaints Gastrointestinal: no complaints Genitourinary: no complaints Musculoskeletal: no complaints Skin: no complaints Neurologic: no complaints Endocrine: no complaints Lymphatic: no complaints Psychological: no complaints, nl mood/affect Immunologic: no complaints Exam/Review of Systems Vital Signs Vitals Vital Signs Date Temp Pulse Resp B/P (MAP) Pulse Ox O2 O2 Flow FiO2 Time Delivery Rate 07/02/18 98.4 90 18 124/81 Room Air 08:14 (95) 06/30/18 96 20:20 Intake and Output 07/01/18 07/01/18 07/02/18 1515:00 23:00 07:00 OutputOutput Total 500 ml BalanceBalance -500 ml Exam Constitutional: alert, oriented, well developed Psych: no complaints, nl mood/affect Head: normocephalic, atraumatic Eyes: nl conjunctiva, EOMI, nl lids, nl sclera ENMT: nl external ears & nose, nl lips & teeth, nl nasal mucosa & septum, mucosa pink and moist Neck: supple, non-tender Respiratory: clear to auscultation, normal air movement Cardiovascular: regular rate and rhythm, nl pulses Gastrointestinal: soft, nl liver, spleen, non-tender Musculoskeletal: nl extremities to inspection, nl gait and stance Extremities: normal pulses Neurological: 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
[2018-07-02 16:19] VITALS: BP 117/74; PULSE 100; RESP 18
[2018-07-02 20:35] VITALS: BP 133/84; PULSE 100; RESP 18
[2018-07-03] MEDS: HYDROCODONE/APAP (5/325) TAB PO PRN (00:08)
[2018-07-03 04:00] VITALS: BP 123/84; PULSE 19; RESP 18
[2018-07-03] MEDS: IBUPROFEN 800 MG TAB PO SCH ×3 (05:43→21:03)
[2018-07-03 08:33] VITALS: BP 131/79; PULSE 90; RESP 18
[2018-07-03] MEDS: SENNA/DOCUSATE NA (8.6MG/50MG) TAB PO SCH ×2 (09:04→21:03)
[2018-07-03] MEDS: ENOXAPARIN 40 MG/0.4 ML SYG SC SCH (09:06)
--- NOTE | 2018-07-03 14:40 | PD.PPDC ---
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
--- NOTE | 2018-07-03 14:48 | DS ---
Date/Time of Note Date/Time of Note DATE: 07/03/18 TIME: 14:43 Discharge Summary Admission/Discharge Info Admit Date/Time Jun 29, 2018 at 19:20 Discharge Date/Time Today or tomorrow Discharge Diagnosis 37 weeks morbid maternal obesity preeclampsia GDM A2 Patient Condition: Good Procedures Repeat low segment transverse section x3 Refusal of a tubal ligation Hx of Present Illness 32 years old female multigravida Previous 2 times Patient had morbid obesity she had early care in my office and she was diagnosed with preeclampsia and GDM A2 for which she was delivered at 37 weeks via repeat section. At the last minute she refused a tubal ligation she had signed the papers Hospital Course Hospital course was pretty much healthy with slow feeding. Passing gases and bowel movement Tolerating diet and pain control with p.o. meds Incision had a drainage that was removed today after draining very little and this tube was placed due to her obesity to prevent seroma of the incision She has been afebrile ambulatory tolerating diet passing gases with bowel movement voiding well with pain controlled with incision that is looking very well and clean Her blood sugars have been controlled with diet alone Home Meds Reported Medications Multivit/Min/Fol Ac/Iron/Pren* ( S*) 1 Tab Tab, 1 TAB PO DAILY, TAB 10/30/16 Follow-up Plan [facility] spent on [facility]: < 30 minutes Pending Labs Laboratory Tests Test 07/02/18 17:55 07/02/18 21:06 07/03/18 07:20 07/03/18 12:13 Bedside 80 122 75 84 Glucose mg/dL (70-220) mg/dL (70-220) mg/dL (70-220) mg/dL (70-220) JUAN WARD MD Jul 03, 2018 14:48
[2018-07-03 16:19] VITALS: BP 119/70; PULSE 83; RESP 17
[2018-07-03 20:00] VITALS: BP 113/73; PULSE 94; RESP 18
[2018-07-04 04:00] VITALS: BP 127/73; PULSE 80; RESP 18
[2018-07-04] MEDS: IBUPROFEN 800 MG TAB PO SCH (05:52)
[2018-07-04 08:00] VITALS: BP 115/70; PULSE 74; RESP 20
[2018-07-04] MEDS: SENNA/DOCUSATE NA (8.6MG/50MG) TAB PO SCH (08:55)
[2018-07-04] MEDS: ENOXAPARIN 40 MG/0.4 ML SYG SC SCH (08:56)
--- NOTE | 2018-07-04 12:44 | QN ---
Documentation Comment PPD#3 is stable No VB +BM +voids VS stable Gen NAD Abd soft NT ND Incision is intact Genitalia No blood at perineum --->Discharge home --->Follow up in 2 wks --->Precautions discussed Questions answered RASHEEDA MUSE M.D. Jul 04, 2018 12:44
--- NOTE | 2018-07-04 12:44 | DS ---
Date/Time of Note Date/Time of Note DATE: 07/04/18 TIME: 12:44 Discharge Summary Admission/Discharge Info Admit Date/Time Jun 29, 2018 at 19:20 Discharge Date/Time 07/04/2018 Discharge Diagnosis 37 weeks morbid maternal obesity preeclampsia GDM A2 Patient Condition: Good Hospital Course uneventful Home Meds Reported Medications Multivit/Min/Fol Ac/Iron/Pren* ( S*) 1 Tab Tab, 1 TAB PO DAILY, TAB 10/30/16 Follow-up Plan 1 week Primary Care Provider [facility] Pending Labs Laboratory Tests Test 07/03/18 17:57 07/03/18 21:06 07/04/18 07:12 07/04/18 08:03 Bedside 110 79 65 94 Glucose mg/dL (70-220) mg/dL (70-220) mg/dL (70-220) mg/dL (70-220) Test 07/04/18 11:44 Bedside 80 Glucose mg/dL (70-220) RASHEEDA MUSE M.D. Jul 04, 2018 12:44
--- NOTE | 2018-07-05 09:54 | NSTRPT ---
NST Information Datetime Report Generated by CPN: 07/05/2018 09:54 Datetime: 06/29/2018 13:39 NST Information EGA: 37.0 Test Number: 2 Time on Monitor: 06/29/2018 13:57 Time off Monitor: 06/29/2018 14:35 NST Duration (Min): 38 Reason for NST: Diabetes Mellitus; Other Reason for NST Other: A1DM Test and Monitor Explained: Monitor Explained; Test Explained; Verbalized Understanding Pulse: 93 Resp: 18 SBP: 136 DBP: 87 Test Evaluation NST Interventions: Reposition Patient Patient States Movement: Present Contraction Frequency: NONE FHR Baseline : 150 Variability: Moderate 6-25bpm Accelerations: 15X15 Decelerations: None FHR Category: Category I NST Results: Reactive Comments: PT TO [facility]/S. MED 12.9cm. CEPHALIC. FBS 98. Electronically Signed By E-Signature: with User ID: [id number] Datetime: 06/22/2018 13:36 NST Information EGA: 36.0 NST Duration (Min): 23
== END 2018-07-04 12:50 | disposition home or self-care (01) | DRG 788 ==
LOC: OBT 15:17 → L-D 15:19 → OBT 19:20 → L-D 06-30 00:59 → PP1 06-30 06:46
PROVIDERS: ADMIT Obstetrics & Gynecology; ATTEND Obstetrics & Gynecology
PROC: 10D00Z1 Extraction of Products of Conception, Low, Open Approach (ICD-10-PCS; principal; 2018-07-04)
DX: O14.94 Unspecified pre-eclampsia, complicating childbirth (principal); O24.425 Gestational diabetes mellitus in childbirth, controlled by oral hypoglycemic drugs; O99.214 Obesity complicating childbirth; E66.01 Morbid (severe) obesity due to excess calories; O34.211 Maternal care for low transverse scar from previous cesarean delivery; Z37.0 Single live birth; Z3A.37 37 weeks gestation of pregnancy
CPT/HCPCS: 80053; 81001; 82962; 84560; 85025; 85384; 85610; 85730; 86592; 86850; 86900; 86901; 87340; 90686; 99464; G0463; J0690; J1200; J1650; J1885; J2270; J2274; J2370; J2405; J2590; J2765; J7120